=== PATIENT | male | born 1990 | race Caucasian/White ===

== ENCOUNTER 2017-04-03 06:03 | Emergency (ER) | payer SELFPAY ==
[2017-04-03 06:17] VITALS: BP 159/77
[2017-04-03] MEDS ORDERED: Acetaminophen/oxyCODONE 325-5 MG Tab PO ONE (06:37)
[2017-04-03] MEDS ORDERED: Clindamycin HCl 150 MG Cap PO ONE (06:37)
--- NOTE | 2017-04-03 06:37 | EDM.PDOC ---
ED HPI ENT - General Chief Complaint: ENT Problem Stated Complaint: TOOTHACHE Time Seen by Provider: 04/03/17 06:33 Source of Information: Reports: Patient History Limitations: Reports: No limitations - History of Present Illness INITIAL COMMENTS - FREE TEXT/NARRATIVE: 26-year-old male presents the ED with severe dental pain and left lower first molar tooth. She said this has been broken off at least one quarter of the crown has been broken for about a year but has never given him any trouble. Developed pain in the tooth about 2 days ago and since that time it has become much worse. He never slept awake last a due to severity of the pain. Described a constant throbbing. He has not been able to seek dental care at this time. Been taking large doses of Motrin and Aleve with minimal relief. Symptom Onset Date: 04/01/17 Timing/Duration: Reports: Day(s):, Getting worse, Gradual onset Severity: severe Location: Reports: mouth (Left lower molar tooth) Quality: Reports: Ache, Pressure Improves with: Reports: None Worsens with: Reports: None, Other (Can't eat or chew on the side.) Associated Symptoms: Denies: confusion, headaches, seizure, shortness of breath , syncope, weakness, chest pain, cough, sputum, fever/chills, diaphoresis, malaise, loss of appetite, nausea/vomiting Treatments [employer]: Reports: Acetaminophen, NSAIDS (Motrin and Aleve.) - Related Data Allergies/ADRs: Allergies Allergy/AdvReac Type Severity Reaction Status Date / Time No Known Allergies Allergy Verified 04/03/17 06:17 Home Meds: Home Meds Clindamycin HCl 300 mg PO TID #24 capsule 04/03/17 [Rx] oxyCODONE HCl/Acetaminophen [Percocet 5-325 mg Tablet] 1 - 2 each PO Q4H PRN # 20 tablet 04/03/17 [Rx] Past Medical History - Past Health History Medical/Surgical History: Denies Medical/Surgical History Social & Family History - Tobacco Use Years of Tobacco use: 7 - Alcohol Use Days Per Week of Alcohol Use: 0 - Recreational Drug Use Recreational Drug Use: No - Living Situation & Occupation Occupation: employed ED ROS ENT - Review of Systems Review Of Systems: See Below Constitutional: Reports: no symptoms Respiratory: Reports: No Symptoms Endocrine: Reports: no symptoms GI/Abdominal: Reports: No symptoms : Reports: no symptoms Musculoskeletal: Reports: no symptoms Skin: Reports: no symptoms Neurological: Reports: No Symptoms Hematologic/Lymphatic: Reports: no symptoms Immunologic: Reports: no symptoms ED EXAM, ENT - Physical Exam Exam: See Below Exam Limited By: No limitations General Appearance: alert, WD/WN, moderate distress (In obvious pain and discomfort) Eye Exam: bilateral eye: normal inspection Ears: normal TMs Mouth/Throat: Other (Pain is well localized to the left lower first molar tooth with the lingular posterior crown of the tooth absent. There is no gingiva swelling or abscess formation around the tooth. Exquisitely tender to touch with the tongue blade.) Head: atraumatic, normocephalic Neck: normal inspection, supple, non-tender, full range of motion. No: lymphadenopathy (L), lymphadenopathy (R) Respiratory/Chest: no respiratory distress, lungs clear, normal breath sounds, no accessory muscle use Cardiovascular: normal peripheral pulses, regular rate, rhythm, no edema, no gallop, no murmur, no rub Course - Vital Signs Last Recorded V/S: Last Vital Signs Temp 36.6 C 04/03/17 06:14 Pulse 64 04/03/17 06:14 Resp 16 04/03/17 06:14 BP 159/77 H 04/03/17 06:14 Pulse Ox 100 04/03/17 06:14 - Orders/Labs/Meds Meds: Medications Discontinued Medications Generic Name Dose Route Start Last Admin Trade Name Zafar PRN Reason Stop Dose Admin Clindamycin HCl 300 mg 04/03/17 06:37 04/03/17 06:59 Cleocin PO 04/03/17 06:38 300 mg ONETIME ONE Administration Oxycodone/Acetaminophen 2 tab 04/03/17 06:37 04/03/17 07:00 Percocet 325-5 Mg PO 04/03/17 06:38 Not Given ONETIME ONE - Radiology Interpretation Free Text/Narrative:: 26-year-old male attends the ED with dental pain. Pain is arising from lower left first molar tooth which has had a broken part of the posterior crown for about a year with no previous past. Pain started 2 days ago and has progressed to constant severe throbbing pain and that did not want to sleep all night. Examination reveals point tenderness localized to this tooth compatible with a typical abscess. Patient be treated with clindamycin 3 mg 3 times a day for 8 days. Continue Motrin or Aleve 2 tablets every 8 hours as needed for pain relief. Percocet 5 325 mg tablets one or 2 every 4-6 hours needed for pain relief x20 tablets provided. Followup with dentist as soon as able. Departure - Departure Time of Disposition: 06:34 Disposition: Home, Self-Care 01 Condition: fair Clinical Impression: Dental abscess Prescriptions: Clindamycin HCl 300 mg PO TID #24 capsule oxyCODONE HCl/Acetaminophen [Percocet 5-325 mg Tablet] 1 - 2 each PO Q4H PRN # 20 tablet PRN Reason: pain relief. Instructions: Dental Abscess, [id number] Referrals: PCP,None [Primary Care Provider] - Forms: ED Department Discharge Additional Instructions: Evaluation in the emergency department this morning in regards to dental pain arising from a fractured left first molar lower tooth. Treatment is antibiotic clindamycin 300 mg 3 times a day for the next 8 days to clear up infection. Continue Aleve 2 tablets every 8 hours to relieve pain and inflammation. Percocet tabs 5-25 mg one or 2 every 4-6 hours for pain not controlled by Aleve alone. Usually once the antibiotics are started to work well the pain will lessen. Of course the tooth needs to be fixed or extracted otherwise infection will return shortly after finishing the antibiotics. Followup with dentist as soon as able.
== END 2017-04-03 07:21 | disposition home or self-care (01) ==
LOC: JD.ED 06:03
DX: K04.7 Periapical abscess without sinus (principal)
CPT/HCPCS: 99283; A9270

== ENCOUNTER 2017-09-04 15:34 | Emergency (ER) | payer SELFPAY ==
[2017-09-04 15:48] VITALS: BP 148/74
--- NOTE | 2017-09-04 16:31 | EDM.PDOC ---
ED HPI GENERAL MEDICAL PROBLEM - General Chief Complaint: General Stated Complaint: TOOTH PAIN Time Seen by Provider: 09/04/17 16:06 Source of Information: Reports: Patient History Limitations: Reports: No Limitations - History of Present Illness INITIAL COMMENTS - FREE TEXT/NARRATIVE: Patient is a 26-year-old male presents ED complaining of pain to left lower jaw secondary to a recent tooth extracted. This was the #20 tooth removed. This was conducted earlier today. Dentist refused prescribing the patient any narcotic pain medications. He was instructed to continue taking ibuprofen and Tylenol for discomfort. Currently the pain is a 3 out of 10. Tooth/Teeth Pain Score (Numeric/FACES): 3 - Related Data Allergies Allergy/AdvReac Type Severity Reaction Status Date / Time No Known Allergies Allergy Verified 09/04/17 15:44 Home Meds: Home Meds Acetaminophen/HYDROcodone [[place] 325-5 MG] 1 tab PO Q6H PRN #2 tablet 09/04/17 [ Rx] Past Medical History - Past Health History Medical/Surgical History: Denies Medical/Surgical History Social & Family History - Family History Family Medical History: Noncontributory - Tobacco Use Smoking Status *Q: Former Smoker Years of Tobacco use: 7 Packs/Tins Daily: 1 Used Tobacco, but Quit: No - Caffeine Use Caffeine Use: Reports: Coffee - Alcohol Use Days Per Week of Alcohol Use: 0 - Recreational Drug Use Recreational Drug Use: No - Living Situation & Occupation Occupation: Employed ED ROS GENERAL - Review of Systems Review Of Systems: See Below Constitutional: Reports: Decreased Appetite HEENT: Reports: Dental Pain ED EXAM, GENERAL - Physical Exam Exam: See Below Exam Limited By: No Limitations General Appearance: Alert, WD/WN, No Apparent Distress Ears: Hearing Grossly Normal Nose: Normal Inspection Throat/Mouth: Normal Voice, No Airway Compromise, Other (#20 tooth has been extracted. Minimal bleeding present. no gum line swelling.) Neck: Normal Inspection, Supple, Non-Tender Respiratory/Chest: No Respiratory Distress, Lungs Clear, Normal Breath Sounds, No Accessory Muscle Use, Chest Non-Tender Cardiovascular: Normal Peripheral Pulses, Regular Rate, Rhythm Peripheral Pulses: 2+: Radial (R) Neurological: Alert, Oriented, CN II-XII Intact, Normal Cognition, No Motor/ Sensory Deficits Psychiatric: Normal Affect, Normal Mood Skin Exam: Warm, Dry, Normal Color Course - Vital Signs Last Recorded V/S: Last Vital Signs Temp 97.8 F 09/04/17 15:44 Pulse 78 09/04/17 15:44 Resp 16 09/04/17 15:44 BP 148/74 H 09/04/17 15:44 Pulse Ox 100 09/04/17 15:44 - Re-Assessments/Exams Free Text/Narrative Re-Assessment/Exam: Patient has extraction of the #20 tooth. Pain is currently 3 out of 10. No narcotic medications will be prescribed. His dentist did not provide a prescription for narcotic medications. 09/04/17 16:52 Patient has again argued that he needs something for the discomfort. I have opted to give him a prescription for [place] 5-325 #2 tabs. No discharge instructions will reprinted. Patient was educated on the side effects of this medication and that he should not drive. Departure - Departure Time of Disposition: 16:30 Disposition: Home, Self-Care 01 Condition: Good Clinical Impression: S/P tooth extraction - Discharge Information Prescriptions: Acetaminophen/HYDROcodone [[place] 325-5 MG] 1 tab PO Q6H PRN #2 tablet PRN Reason: Pain (Severe 7-10) Referrals: PCP,None [Primary Care Provider] - Forms: ED Department Discharge Additional Instructions: No narcotic medications will be prescribed. Utilize Tylenol and ibuprofen in alternating fashion for pain. Do not chew on the affected side. Follows instructions by your dentist to manage the wound site. Return to the dentist for definitive treatment if you should have any concerns.
== END 2017-09-04 17:05 | disposition home or self-care (01) ==
LOC: JD.ED 15:34
DX: K08.89 Other specified disorders of teeth and supporting structures (principal); Z98.818 Other dental procedure status; Z87.891 Personal history of nicotine dependence
CPT/HCPCS: 99283

== ENCOUNTER 2022-02-26 13:49 | Emergency (ER) | payer SELFPAY ==
[2022-02-26 14:01] VITALS: BP 162/86; PULSE 84
[2022-02-26] MEDS ORDERED: LORazepam 2 MG/ML SDV IVPUSH ONE (14:15)
[2022-02-26] MEDS ORDERED: Sodium Chloride 0.9% 10 ML Syringe FLUSH PRN (14:15)
[2022-02-26] MEDS ORDERED: Sodium Chloride 0.9% 1,000 ML IV SCH (14:15)
== END 2022-02-26 16:06 | disposition home or self-care (01) ==
LOC: JD.ED 13:49
DX: R00.2 Palpitations (principal); R42 Dizziness and giddiness
CPT/HCPCS: 36415; 80053; 85025; 93005; 96374; 99284; J2060; J7030; 93010; J3490